=== PATIENT | male | born 1985 | race Caucasian/White ===

== ENCOUNTER 2018-07-15 20:54 | Observation (INO) | payer BC ==
[2018-07-15] MEDS ORDERED: HYDROMORPHONE HCL INJ/PF 2 MG/ML AMPULE IV ONE (21:24)
[2018-07-15] MEDS ORDERED: ACETAMINOPHEN 325 MG TABLET PO ONE (21:34)
[2018-07-15] MEDS ORDERED: LIDOCAINE 5% (700 MG) TRANSDERMAL ADH..PATCH TP ONE (21:35)
[2018-07-15] MEDS ORDERED: METHOCARBAMOL 500 MG TABLET PO ONE (21:35)
--- NOTE | 2018-07-15 21:48 | ER Document Report ---
ED General - General Chief Complaint: Back Injury Stated Complaint: LUMBER PAIN Time Seen by Provider: 07/15/18 21:34 Notes: Patient is a 33-year-old male without chronic medical problems who presents with acute onset of low back pain. Patient states that he was tubing with his son, they had a wave, they went up in the air and he states that he landed abnormally and heard a pop in his back. The patient states that when he slid into the wa ter he was unable to move his legs. States that since that time he has had a severe, throbbing, constant pain to his low back. Any attempt at moving his legs or rotating his body dramatically worsens the pain. Toradol provided by EMS provided minimal relief. Patient states that he has had some mild back problems in the past but never to this degree of severity. On scene the patient was noted to have difficulty moving his legs and states that he continues to have difficulty moving them secondary to pain although denies numbness or feeling like he has true weakness in the legs. Denies incontinence, states that he feels like he has to urinate. TRAVEL OUTSIDE OF THE [place] IN LAST 30 DAYS: No - Related Data Allergies/Adverse Reactions: buspirone HCl [From BuSpar] Allergy (Verified 02/01/15 08:32) Coconut * [Coconut] Allergy (Verified 02/01/15 08:32) Past Medical History - General Information source: Patient - Social History Smoking Status: Never Smoker Frequency of alcohol use: Social Drug Abuse: None Lives with: Spouse/Significant other Family History: Reviewed & Not Pertinent Patient has suicidal ideation: No Patient has homicidal ideation: No - Past Medical History Cardiac Medical History: Reports: Hx Heart Attack Neurological Medical History: Reports: Hx Migraine Renal/ Medical History: Denies: Hx Peritoneal Dialysis Musculoskeletal Medical History: Reports Hx Musculoskeletal Trauma - Left forearm fracture Psychiatric Medical History: Reports: Hx Depression Traumatic Medical History: Reports: Hx Fractures - Left forearm Past Surgical History: Reports: Hx Orthopedic Surgery - ORIF left forearm - Immunizations Hx Diphtheria, Pertussis, Tetanus Vaccination: Yes Review of Systems - Review of Systems Notes: Constitutional: Negative for fever. Eyes: Negative for visual changes. ENT: Negative for facial injury Cardiovascular: Negative for chest injury. Respiratory: Negative for shortness of breath. Gastrointestinal: Negative for abdominal injury. Genitourinary: Negative for genital injury Musculoskeletal: Positive for low back injury and low back pain Skin: Negative for laceration/abrasions. Neurological: Negative for head injury. Physical Exam - Vital signs Vitals: Temp Pulse Resp BP Pulse Ox 97.9 F 58 L 16 129/64 H 97 07/15/18 21:16 07/15/18 21:16 07/15/18 21:16 07/15/18 21:16 07/15/18 21:16 Interpretation: Normal Notes: PHYSICAL EXAMINATION: GENERAL: Appears extremely uncomfortable, in obvious severe pain HEAD: Atraumatic, normocephalic. EYES: Pupils equal round and reactive to light, extraocular movements intact, sclera anicteric, conjunctiva are normal. ENT: nares patent, oropharynx clear without exudates. Moist mucous membranes. NECK: Normal range of motion, supple without lymphadenopathy LUNGS: Breath sounds clear to auscultation bilaterally and equal. No wheezes ra les or rhonchi. HEART: Regular rate and rhythm without murmurs ABDOMEN: Soft, nontender, normoactive bowel sounds. No guarding, no rebound. No masses appreciated. Rectal: Normal rectal tone : No saddle anesthesia in the perineal region EXTREMITIES: On initial examination the patient is unable to perform range of motion testing on bilateral lower extremities. NEUROLOGICAL: 2+ patellar and ankle reflexes bilaterally. No clonus. Patient does give some effort on proximal and distal strength testing on initial exam but is unable to comply with strength testing secondary to pain PSYCH: Normal mood, normal affect. SKIN: Warm, Dry, normal turgor, no rashes or lesions noted. Course - Re-evaluation Re-evalutation: 07/15/18 21:46 Patient presents with extreme difficulty moving his bilateral lower extremities after hearing a pop in his low back while tubing. I medially was called to this patient's bedside by nursing staff. Of note, we do not have MRI available at this hour on Sundays. Patient was moved to a standard room as he was initially in the hallway precluding ability to appropriately assess the patient. On initial examination the patient is noted to have 2+ patellar and ankle reflexes. He has full sensation throughout his bilateral lower extremities. No clonus. Patient underwent rectal examination and does have good sphincter tone. Has no saddle anesthesia. However although it could be pain mediated the patient is unable to give me appropriate strength testing in the bilateral lower extrem ity's. Will provide analgesia and reassess the patient's strength exam. Patient is in guarded condition and will continue be reassessed at regular intervals as he may require transfer for MRI if his neurologic exam is not normalizing. 07/15/18 22:47 I reassessed this patient on 3 occasions since his initial evaluation. After total of 2 of hydromorphone the patient is not able to give me 5 out of 5 strength in the bilateral lower extremities although with significant pain. He is however able to overpower my hand both distally and proximally. He is able to stand at the bedside with a 2 person assist but is visibly shaking when he is doing so and is not able to walk forward. At this point, I do believe the patient requires an MRI to definitively exclude cord compression but do not clinically suspect this at this time given that he has normal rectal tone, was able to void 650 cc of urine with no visible postvoid residual on bedside ultrasound, has symmetric 2+ reflexes bilaterally, and now has full strength again with significant pain both distally and proximally. However his ability inability to ambulate does mandate hospitalization for pain control an MRI in the morning. Likewise I discussed with the patient that we could transfer him at this time for the hope that we can get an MRI more quickly. However, given the hour of the night and the time the transfer would require, I think it is highly improbable that the patient would have an MRI done and completed before 8 AM which is the time that I can get an MRI here. The patient and his understand this and state that they are comfortable staying here to get the MRI done in the morning as opposed to attempting transfer in the hopes that we could potentially get an MRI several hours sooner. The patient is completely comfortable with this plan. I have discussed with the hospitalist Dr. Vizcaino who is accepted the patient to a medical floor. - Vital Signs Vital signs: Temp Pulse Resp BP Pulse Ox 97.3 F 52 L 14 124/86 H 100 07/16/18 00:27 07/16/18 00:27 07/16/18 00:27 07/16/18 00:27 07/16/18 00:27 Critical Care Note - Critical Care Note Total time excluding time spent on procedures (mins): 35 Comments: Critical care time spent obtaining history from patient or surrogate, discussions with consultants, development of treatment plan with patient or surrogate, evaluation of patient's response to treatment, examination of patient, ordering and performing treatments and interventions, ordering and review of laboratory studies, re-evaluation of patient's condition, ordering and review of radiographic studies and review of old charts Discharge - Discharge Clinical Impression: Intractable low back pain, Ambulatory dysfunction Acute low back pain Qualifiers: Back pain laterality: bilateral Sciatica presence: without sciatica Qualified Code(s): M54.5 - Low back pain Condition: Fair Disposition: ADMITTED OBSERVATION Admitting Provider: Carrillo (Hospitalist) Unit Admitted: Medical Floor
[2018-07-15] MEDS ORDERED: HYDROMORPHONE HCL INJ/PF 2 MG/ML AMPULE ONE (22:20)
[2018-07-15] MEDS ORDERED: KETOROLAC TROMETHAMINE INJ/PF 30 MG/1 ML SDV IV PRN (22:47)
[2018-07-15] MEDS ORDERED: OXYCODONE-ACETAMINOPHEN 5-325 MG TABLET PO PRN (22:47)
[2018-07-15] MEDS ORDERED: KETOROLAC TROMETHAMINE INJ/PF 30 MG/1 ML SDV IV ONE (22:47)
[2018-07-15] MEDS ORDERED: MAG HYDROX/AL HYDROX/SIMETH SUSP 30 ML UDCUP PO PRN (22:48)
[2018-07-16 04:13] LABS: ABSOLUTE EOSINOPHILS # (AUTO) 0.1 10^3/uL (0.0-0.6); ABSOLUTE LYMPHOCYTES (AUTO) 2.4 10^3/uL (0.5-4.7); ABSOLUTE MONOCYTES (AUTO) 0.5 10^3/uL (0.1-1.4); ABSOLUTE NEUT (AUTO) 1.7 10^3/uL (1.7-8.2); EOSINOPHILS % (AUTO) 2.6 % (0-6); HEMATOCRIT 39.8 % (37.9-51.0); HEMOGLOBIN 13.4 g/dL (13.5-17.0); LYMPHOCYTES % (AUTO) 49.5 % (13-45); MEAN CORPUSCULAR HGB CONC 33.6 g/dL (32.0-36.0); MEAN CORPUSCULAR VOLUME 86 fl (80-97); MONOCYTES % (AUTO) 11.2 % (3-13); PLATELET COUNT 181 10^3/uL (150-450); RED BLOOD COUNT 4.61 10^6/uL (4.35-5.55); RED CELL DISTRIBUTION WIDTH 13.3 % (11.5-14.0); SEGMENTED NEUTROPHILS % (AUTO) 35.7 % (42-78); TOTAL CELLS COUNTED % (AUTO) 100 %; WHITE BLOOD COUNT 4.8 10^3/uL (4.0-10.5)
[2018-07-16] MEDS: HEPARIN SOD (PORCINE) 5,000 UNIT/ML 1 ML SYRINGE SUBCUT SCH ×2 (05:57→14:50)
--- NOTE | 2018-07-16 06:59 | PDOC H&P ---
History of Present Illness Admission Date/PCP: 07/15/18 23:07 Patient complains of: Lumbar back pain History of Present Illness: ANN LYNN is a 33 year old male without past medical history who presents with acute onset of lumbar back pain exacerbated by leg movement. Patient sustained acute injury to the lower back hearing a popping sound when thrown from an inflatable tube pulled by boat. Immediately after he was unable to move his legs and associated with severe throbbing and constant pain to his lower back exacerbated by any movement of his lower extremity. In the emergency room he has an extensive neurologic evaluation without deficit. He has limited range of motion secondary to pain. However no incontinence or focal weakness. Pain is controlled by Dilaudid and subsequently able to tolerate movement of the lower extremity. CT imaging is unremarkable. MRI is ordered but unavailable. Patient denies previous back injury and is otherwise felt well. Past Medical History Cardiac Medical History: Reports: Myocardial Infarction - Described as coronary artery spasm, with hypokalemia no CAD Neurological Medical History: Reports: Migraine Psychiatric Medical History: Reports: Depression Past Surgical History Past Surgical History: Reports: Orthopedic Surgery - ORIF left forearm Social History Information Source: Patient, Emergency Med Personnel, [facility] Records Lives with: Spouse/Significant other Smoking Status: Never Smoker Frequency of Alcohol Use: Social Hx Recreational Drug Use: No Drugs: None Hx Prescription Drug Abuse: No - Advance Directive Resuscitation Status: Full Code Family History Family History: Hypertension Parental Family History Reviewed: Yes Children Family History Reviewed: Yes Sibling(s) Family History Reviewed.: Yes Medication/Allergy Home Medications: No Home Medications 07/16/18 Allergies/Adverse Reactions: buspirone HCl [From BuSpar] Allergy (Verified 02/01/15 08:32) Coconut * [Coconut] Allergy (Verified 02/01/15 08:32) Review of Systems Constitutional: ABSENT: chills, fever(s), headache(s), weight gain, weight loss Eyes: ABSENT: visual disturbances Ears: ABSENT: hearing changes Cardiovascular: ABSENT: chest pain, dyspnea on exertion, edema, orthropnea, palpitations Respiratory: ABSENT: cough, hemoptysis Gastrointestinal: ABSENT: abdominal pain, constipation, diarrhea, hematemesis, hematochezia, nausea, vomiting Genitourinary: ABSENT: dysuria, hematuria Musculoskeletal: ABSENT: joint swelling Integumentary: ABSENT: rash, wounds Neurological: ABSENT: abnormal gait, abnormal speech, confusion, dizziness, focal weakness, syncope Psychiatric: ABSENT: anxiety, depression, homidical ideation, suicidal ideation Endocrine: ABSENT: cold intolerance, heat intolerance, polydipsia, polyuria Hematologic/Lymphatic: ABSENT: easy bleeding, easy bruising Physical Exam Vital Signs: Temp Pulse Resp BP Pulse Ox 97.3 F 52 L 14 124/86 H 100 07/16/18 00:27 07/16/18 00:27 07/16/18 00:27 07/16/18 00:27 07/16/18 00:27 Intake & Output 07/14/18 07/15/18 07/16/18 11:59 11:59 11:59 Intake Total 480 Balance 480 Weight 113.398 kg General appearance: PRESENT: cooperative, mild distress, well-developed, well- nourished Head exam: PRESENT: atraumatic, normocephalic Eye exam: PRESENT: conjunctiva pink, EOMI, PERRLA. ABSENT: scleral icterus Ear exam: PRESENT: normal external ear exam Mouth exam: PRESENT: moist, tongue midline Neck exam: ABSENT: carotid bruit, JVD, lymphadenopathy, thyromegaly Respiratory exam: PRESENT: clear to auscultation mauricio. ABSENT: rales, rhonchi, wheezes Cardiovascular exam: PRESENT: RRR. ABSENT: diastolic murmur, rubs, systolic murmur Pulses: PRESENT: normal dorsalis pedis pul Vascular exam: PRESENT: normal capillary refill GI/Abdominal exam: PRESENT: normal bowel sounds, soft. ABSENT: distended, guarding, mass, organolmegaly, rebound, tenderness Rectal exam: PRESENT: deferred Extremities exam: PRESENT: full ROM. ABSENT: calf tenderness, clubbing, pedal edema Musculoskeletal exam: PRESENT: normal inspection, tenderness. ABSENT: deformity, dislocation, full ROM - Active range of motion painful Neurological exam: PRESENT: alert, awake, oriented to person, oriented to place, oriented to time, oriented to situation, CN II-XII grossly intact. ABSENT: motor sensory deficit Psychiatric exam: PRESENT: appropriate affect, normal mood. ABSENT: homicidal ideation, suicidal ideation Skin exam: PRESENT: dry, intact, warm. ABSENT: cyanosis, rash Results Laboratory Results: 07/16/18 03:59 07/16/18 03:59 WBC 4.8 RBC 4.61 Hgb 13.4 L Hct 39.8 MCV 86 MCH 29.0 MCHC 33.6 RDW 13.3 Plt Count 181 Seg Neutrophils % 35.7 L Lymphocytes % 49.5 H Monocytes % 11.2 Eosinophils % 2.6 Basophils % 1.0 Absolute Neutrophils 1.7 Absolute Lymphocytes 2.4 Absolute Monocytes 0.5 Absolute Eosinophils 0.1 Absolute Basophils 0.0 Assessment and Plan - Diagnosis (1) Acute low back pain Qualifiers: Back pain laterality: bilateral Sciatica presence: without sciatica Q ualified Code(s): M54.5 - Low back pain Is this a current diagnosis for this admission?: Yes Plan: Following traumatic tubing incident. Symptomatic management, follow-up MRI (2) Ambulatory dysfunction Is this a current diagnosis for this admission?: Yes Plan: So far appears secondary to intractable pain with no focal neurologic deficit, symptomatic management, follow-up MRI - Time Time Spent with patient: 25-34 minutes - Inpatient Certification Medical Necessity: Need Close Monitoring Due to Risk of Patient Decompensation
[2018-07-16] MEDS ORDERED: VENLAFAXINE HCL 37.5 MG CAP.SR.24H PO SCH (10:00)
[2018-07-16] MEDS ORDERED: DOCUSATE SODIUM 100 MG CAPSULE PO SCH (10:00)
--- NOTE | 2018-07-16 11:15 | RADIOLOGY REPORT (SQ) ---
EXAM DESCRIPTION: MRI LUMBAR SPINE WITHOUT COMPLETED DATE/TIME: 07/16/2018 10:35 am REASON FOR STUDY: acute low back pain COMPARISON: None. TECHNIQUE: Sagittal and Axial imaging includes T1, T2, STIR and gradient echo sequences. Coronal T2/ HASTE imaging. LIMITATIONS: None. FINDINGS: VISUALIZED UPPER ABDOMEN: Distended urinary bladder SEGMENTATION: No transitional anatomy. The lowest well-developed disc space is labeled L5-S1. ALIGNMENT: Anatomic. VERTEBRAE: Intact. BONE MARROW: Normal. No marrow replacement or reactive changes. DISC SIGNAL: Decreased T2 weighted intervertebral disc signal throughout the lumbar spine without dis c space loss of height. POSTERIOR ELEMENTS: Generally intact. No pars defect evident. HARDWARE: None in the spine. CORD AND CONUS: Normal in size and signal intensity. Conus at the T12-L1 level. SOFT TISSUES: No aortic aneurysm seen. No bulky retroperitoneal adenopathy or mass. No paraspinal mas s or fluid. T12-L1: Unremarkable L1-L2: Mild bilateral facet hypertrophy. No central or foraminal stenosis. L2-L3: Mild bilateral facet hypertrophy. No central or foraminal stenosis L3-L4: Minimal posterior disc bulging is present with a small central annular tear. Mild bilateral f acet and ligament hypertrophy. No central or foraminal stenosis. L4-L5: Mild diffuse posterior disc bulging is present with small central annular tear. Moderate bila teral facet hypertrophy. No central stenosis or foraminal stenosis L5-S1: Minimal posterior disc bulging, mild bilateral facet hypertrophy. No central or foraminal alycia nosis SACRUM: Visualized upper sacrum intact. OTHER: No other significant findings. IMPRESSION: No significant central or foraminal encroachment TECHNICAL DOCUMENTATION: JOB ID: [id number] [employer]- All Rights Reserved Reading location - IP/workstation name: [email or web address]
--- NOTE | 2018-07-16 11:18 | RADIOLOGY REPORT (SQ) ---
EXAM DESCRIPTION: MRI THORACIC SPINE WITHOUT COMPLETED DATE/TIME: 07/16/2018 10:35 am REASON FOR STUDY: acute low back pain COMPARISON: CT chest 09/27/2014 TECHNIQUE: Sagittal and Axial imaging includes T1, T2, STIR and gradient echo sequences. LIMITATIONS: None. FINDINGS: LOCALIZER: No worrisome findings. ALIGNMENT: Normal. VERTEBRAE: Intact. BONE MARROW: Normal. No marrow replacement or reactive changes. HARDWARE: None in the spine. CORD: Normal in size and signal intensity. SOFT TISSUES: No soft tissue masses. THORACIC DISCS T1-T12: There is very mild posterior disc bulging at T7-8 and T8-9 without significant central or foraminal encroachment. Mild bilateral T9-10 facet arthropathy is present without signif icant central or foraminal encroachment LOWER CERVICAL: Incompletely imaged. No significant spinal stenosis or exit foraminal stenosis. UPPER LUMBAR: Incompletely imaged. No significant spinal stenosis or exit foraminal stenosis. OTHER: No other significant finding. IMPRESSION: Mild degenerative disc changes lower thoracic spine TECHNICAL DOCUMENTATION: JOB ID: [id number] [employer]- All Rights Reserved Reading location - IP/workstation name: [email or web address]
[2018-07-16 16:03] VITALS: BP 128/84
--- NOTE | 2018-07-17 14:01 | PDOC DISCHARGE SUMMARY ---
General - Admit/Disc Date/PCP Admission Date/Primary Care Provider: 07/15/18 23:07 Discharge Date: 07/16/18 - Discharge Diagnosis (1) Acute low back pain Is this a current diagnosis for this admission?: Yes Summary: The patient was admitted to the medical floor and provided analgesics as needed; he actually only had one dose of Toradol provided at admission and declined any other need for medication management of pain. MRI of the Thoracic and Lumbar spine was obtained; noted to have very mild posterior disc bulging of T7/8, T8/9, L3/4, L4/5, L5/S1 without acute findings to either thoracic or lumbar spine. The patient reported that he was aware of the lumbar spine disc bulges from prior injury/imaging (occupation is [employer]). At time of discharge, the patient is in stable condition, discomfort had improved significantly, and he was now ambulatory without difficulty. He was advised to avoid complete bed rest; continue to change positions and ambulate frequently as tolerated. He was provided prescriptions for Naprosyn, Percocet, and Flexeril to use as needed. He is advised to follow up with his PCP within 1 week. He is encouraged to consider orthopethic/spine and physical therapy consultations. He is instructed to return to the emergency department as needed for concerning symptoms. (2) Ambulatory dysfunction Is this a current diagnosis for this admission?: Yes Summary: Resolved; secondary to #1. - Additional Information Resuscitation Status: Full Code Discharge Diet: Regular Discharge Activity: Activity As Tolerated, Balance Activity w/Rest, Slowly Increase Activity Prescriptions: Cyclobenzaprine HCl [Flexeril 5 mg Tablet] 5 mg PO TID #15 tablet Docusate Sodium [Colace 100 mg Capsule] 100 mg PO BID #60 capsule Naproxen [Naprosyn] 500 mg PO BID #20 tablet Oxycodone HCl/Acetaminophen [Percocet 5-325 mg Tablet] 1 tab PO Q6HP PRN #20 tablet PRN Reason: Home Medications: Cyclobenzaprine HCl [Flexeril 5 mg Tablet] 5 mg PO TID #15 tablet 07/16/18 Docusate Sodium [Colace 100 mg Capsule] 100 mg PO BID #60 capsule 07/16/18 Naproxen [Naprosyn] 500 mg PO BID #20 tablet 07/16/18 Oxycodone HCl/Acetaminophen [Percocet 5-325 mg Tablet] 1 tab PO Q6HP PRN #20 tablet 07/16/18 Venlafaxine HCl ER [Effexor Xr 37.5 mg Cap.sr] 37.5 mg PO DAILY cap.sr.24h 07/16/18 History of Present Illness History of Present Illness: H&P per Dr. Vizcaino: ANN LYNN is a 33 year old male without past medical h istory who presents with acute onset of lumbar back pain exacerbated by leg movement. Patient sustained acute injury to the lower back hearing a popping sound when thrown from an inflatable tube pulled by boat. Immediately after he was unable to move his legs and associated with severe throbbing and constant pain to his lower back exacerbated by any movement of his lower extremity. In the emergency room he has an extensive neurologic evaluation without deficit. He has limited range of motion secondary to pain. However no incontinence or focal weakness. Pain is controlled by Dilaudid and subsequently able to tolerate movement of the lower extremity. CT imaging is unremarkable. MRI is ordered but unavailable. Patient denies previous back injury and is otherwise felt well. Physical Exam Vital Signs: Temp Pulse Resp BP Pulse Ox 97.9 F 58 L 16 128/72 H 99 07/16/18 15:59 07/16/18 15:59 07/16/18 15:59 07/16/18 15:59 07/16/18 15:59 Intake & Output 07/16/18 07/17/18 07/18/18 06:59 06:59 06:59 Intake Total 960 1314 Output Total 200 1050 Balance 760 264 Weight 113 kg General appearance: PRESENT: no acute distress, well-developed, well-nourished Head exam: PRESENT: atraumatic, normocephalic Eye exam: PRESENT: conjunctiva pink, EOMI, PERRLA. ABSENT: scleral icterus Ear exam: PRESENT: normal external ear exam Mouth exam: PRESENT: moist, tongue midline Neck exam: ABSENT: carotid bruit, JVD, lymphadenopathy, thyromegaly Respiratory exam: PRESENT: clear to auscultation mauricio. ABSENT: rales, rhonchi, wheezes Cardiovascular exam: PRESENT: RRR. ABSENT: diastolic murmur, rubs, systolic murmur Pulses: PRESENT: normal dorsalis pedis pul Vascular exam: PRESENT: normal capillary refill GI/Abdominal exam: PRESENT: normal bowel sounds, soft. ABSENT: distended, guarding, mass, organolmegaly, rebound, tenderness Rectal exam: PRESENT: deferred Extremities exam: PRESENT: full ROM. ABSENT: calf tenderness, clubbing, pedal edema Musculoskeletal exam: PRESENT: ambulatory, tenderness - Lumbar spine Neurological exam: PRESENT: alert, awake, oriented to person, oriented to place, oriented to time, oriented to situation, CN II-XII grossly intact, normal gait, other - Strength 5/5 all extremities; straight leg lift against resistance does not illicit symptoms, ambulates independently w/o difficulty. ABSENT: abnormal gait, ataxia, motor sensory deficit Psychiatric exam: PRESENT: appropriate affect, normal mood. ABSENT: homicidal ideation, suicidal ideation Skin exam: PRESENT: dry, intact, warm. ABSENT: cyanosis, rash Results Laboratory Results: 07/16/18 03:59 Impressions: Lumbar Spine MRI 07/15/18 22:47 IMPRESSION: No significant central or foraminal encroachment Thoracic Spine MRI 07/15/18 22:47 IMPRESSION: Mild degenerative disc changes lower thoracic spine Qualifiers - * PATIENT BEING DISCHARGED WITH ANY OF THE FOLLOWING DIAGNOSIS: No Acute Heart Failure Is this a Heart Failure Patient?: No Plan Discharge Plan: Follow up with primary care provider within 1 week. Recommend establishing care with an orthopedic/continuous improvement specialist. May also benefit from outpatient physical therapy. Do not stay on bed rest; it is important to continue to change positions and ambulate frequently. Return to the emergency department as needed for concerning symptoms. Time Spent: Less than 30 Minutes
== END 2018-07-16 16:40 | disposition home or self-care (01) ==
LOC: ER 20:54 → EH 23:07 → 2N 07-16 00:13
PROVIDERS: ADMIT Internal Medicine; ATTEND Internal Medicine
DX: M54.5 Low back pain (principal); R26.9 Unspecified abnormalities of gait and mobility; S39.82XA Other specified injuries of lower back, initial encounter; V94.31XA Injury to rider of (inflatable) recreational watercraft being pulled behind other watercraft, initial encounter; Y93.16 Activity, rowing, canoeing, kayaking, rafting and tubing; M51.34 Other intervertebral disc degeneration, thoracic region; Z79.899 Other long term (current) drug therapy
CPT/HCPCS: 96376; 99291; 96374; 96375; 36415; 85025; 72146; 72148; G0378 ×2; J1644; J3490; J1885 ×2; J1170